=== PATIENT | female | born 1995 | race Caucasian/White ===

== ENCOUNTER 2024-07-10 12:16 | Emergency (ER) | payer BC, SELFPAY ==
--- NOTE | ~2024-07-10 | CT_ITS ---
CLINICAL HISTORY: headache and syncope CT head without contrast Comparison: None Findings: No intra-axial mass, midline shift, hydrocephalus, or acute hemorrhage. No significant atrophy-like change or white matter disease. There is mucosal thickening of the bilateral maxillary sinus. The orbits are within normal limits. There is no acute fracture. IMPRESSION: No acute intracranial findings Sinusitis of the bilateral maxillary sinus. This document has been electronically signed by: Norm Quiroz MD on 07/10/2024 17:06:06
[2024-07-10 12:25] VITALS: BP 131/77; PULSE 91; RESP 19; TEMP 36.6; O2SAT 98; BMI 35.9
--- NOTE | 2024-07-10 12:25 | ED_ITS ---
HPI - General Adult General Chief complaint: Headache Stated complaint: headache, fainted Time Seen by Provider: 07/10/24 14:51 History of Present Illness HPI narrative: Patient complains of abrupt onset headache which happened while she was sitting at the table talking with her aunt, and then she fainted, she was briefly on the floor and then woke up to full alertness and consciousness and was asymptomatic This headache is similar to many many prior headaches over years which began with a very abrupt onset and last for a short amount of time and leave her dizzy, but the difference today was she actually did faint and had a syncopal episode There was no seizure activity, she returned to full alertness and consciousness very quickly, she did hit her head when she fell, at this moment of time she has no headache no nausea no dizziness no feeling faint, she never had chest pain or shortness of breath, no palpitations no diaphoresis Today's headache followed the same pattern the difference being she fainted as opposed to other headaches which are brief abrupt onset headaches with dizziness She is from [place] and has seen by a primary doctor in [place] but never had any significant testing or referral to a neurologist Related Data Allergies Allergy/AdvReac Type Severity Reaction Status Date / Time No Known Allergies Allergy Verified 07/10/24 12:29 [facility], [facility] Past Medical History [facility] Narrative: Chronic headaches for many years Source: nursing notes reviewed Social History Social History Advance Directives: No Advance Directives Information Provided: No Do you have a plan to hurt others: No Plan Physical Exam ED Vital Signs: Vital Signs - 24 hr 07/10/24 12:25 07/10/24 16:13 07/10/24 18:40 Temperature 98 F 97.7 F 97.7 F Pulse Rate 91 87 87 Respiratory Rate 19 16 16 Blood Pressure 131/77 127/76 127/76 Pulse Oximetry 98 100 100 Oxygen Delivery Method Room Air Room Air Room Air BMI result Body Mass Index 35.9 General appearance comfortable calm cooperative no acute distress A&O x3 The eyes pupils equal round reactive to light extraocular motions are intact The head is normocephalic atraumatic, no hernandez sign no raccoon eyes The neck is supple and nontender Chest is clear to auscultation bilateral Heart no murmur Abdomen soft nontender Extremities full range of motion x4 Neuro gait balance are normal, interaction comprehension and expression are normal, cranial nerves 2-12 intact as tested, motor is 5/5 x4, sensation intact and symmetrical in distal extremities, cerebellar exam [id number] is normal Course Course Course Narrative: 29 yo female with no PMH of headaches but not migraines - started with a headache one week ago pain was stronger. Not on blood thinners. Fell today about 2 hours ago because pain was severe she touched her scalp then became weak fell to the ground hitting head. reported LOC with weakness. No n/v, fevers. At this time she is not toxic, no focal deficits, GSC 15, overall well appearing and steady gait. this is a RAPID medical screening exam the rest of the history and physical exam is to be done by the main provider. Patient with long history of abrupt onset headaches that are brief and are followed by a brief period of dizziness that have been going on for years, they happen frequently Today she had a similar episode but believes she fainted and hit her head and was out on the floor for about a minute and then return to full consciousness and was asymptomatic EKG was sinus rhythm with short ND, ND was 100, no acute ST changes no acute ischemic changes She had no worrisome cardiac symptoms she had no chest pain no shortness of breath no palpitations preceding the episode, she did have a headache Head CT was negative for any acute intracranial pathology, no bleed no mass seen Hematology CBC was normal, routine chemistry was negative and beta hCG was negative not Case was discussed with Dr. Cardenas, head CT was done about 5 hours after the patient's headache onset this morning and was negative and Dr. Bragg advised within 6 hour window this is not an acute bleed, headache did follow the pattern of many prior headaches Patient is discharged diagnosis headache, feeling in her normal state of health and it was not believed that the headache today was a bleed or any other emergent life-threatening condition Medical Decision Making Lab Data MDM Lab Attestation statement: I reviewed the patient's lab results. 07/10/24 12:59 07/10/24 12:59 Labs: Lab Results 07/10/24 Range/Units 12:59 WBC 8.7 (4.8-10.8) X10*3/uL RBC 4.79 (4.20-5.50) X10*6/uL Hgb 14.2 (12.0-16.0) g/dl Hct 42.4 (37.0-47.0) % MCV 88.5 (80.0-98.0) fL MCH 29.6 (27.0-33.0) pg MCHC 33.5 (31.0-35.0) g/dl RDW 12.7 (11.0-16.0) % Plt Count 367 (160-400) X10*3/uL MPV 10.7 (9.4-12.3) fL Immature Gran % (Auto) 0.3 (0.0-0.4) % Neut % (Auto) 63.6 (45-73) % Lymph % (Auto) 28.3 (20-40) % Meigs % (Auto) 6.5 (2-11) % Eos % (Auto) 1.0 (0-4) % Baso % (Auto) 0.3 (0-2) % Lymph # (Auto) 2.5 (1.2-4.9) X10*3/uL Meigs # (Auto) 0.6 (0.1-1.2) X10*3/uL Eos # (Auto) 0.1 (0.0-0.4) X10*3/uL Baso # (Auto) 0.0 (0.0-0.2) X10*3/uL Abs Immat Gran (auto) 0.03 (0.00-0.03) X10*3/uL Absolute Neuts (auto) 5.5 (2.0-8.3) x10*3/uL Absolute Nucleated RBC 0.000 (0.0-0.012) X10*3/uL Nucleated RBC % (auto) 0.0 (0.0-0.2) /100WBC Sodium 139 (135-145) mmol/L Potassium 4.0 (3.3-5.1) mmol/L Chloride 105 (96-108) mmol/L Carbon Dioxide 27 (22-29) mmol/L Anion Gap 11 L (12-20) BUN 11 (9-16) mg/dL Creatinine 0.71 (0.5-1.4) mg/dL Estim Creat Clear Calc 111.9 Estimated GFR > 60 Random Glucose 82 (60-115) mg/dL Calcium 8.9 (8.4-10.2) mg/dL Magnesium 1.9 (1.6-2.6) mg/dL Total Bilirubin 0.6 (0.0-1.0) mg/dL Direct Bilirubin 0.1 (0.0-0.5) mg/dL AST 28 (5-31) U/L ALT 27 (0-31) U/L Alkaline Phosphatase 66 (39-117) U/L Total Protein 7.7 (6.5-8.0) g/dL Albumin 4.1 (3.5-5.0) g/dL Beta HCG, Quant < 2 mIU/mL Discharge Plan Discharge Clinical Impression: Headache Patient Disposition: Home, Self-Care Additional Instructions: We believe the headache today with a fainting episode was a variation of the chronic headache you have had for years We do not believe there is anything dangerous or life-threatening and you will be discharged to follow up with primary doctor Your head CT was normal, lab sent today did not have any acute abnormalities, you are not Return to the ER any time any worse condition or any concerns Stand Alone Forms: Work/School Release Interventions: ED Discharge Assessment Last Done: 07/10/24 18:40 Discharge Date/Time: 07/10/24 18:40 Print Language: Albanian
--- NOTE | 2024-07-10 12:29 | ECG_ITS ---
Test Reason : HEADACHE Blood Pressure : / mmHG Vent. Rate : 088 BPM Atrial Rate : 088 BPM P-R Int : 100 ms QRS Dur : 074 ms QT Int : 356 ms P-R-T Axes : 000 139 -17 degrees QTc Int : 430 ms Sinus rhythm with short WI Right axis deviation Nonspecific T wave abnormality Abnormal ECG No previous ECGs available Referred By: Arlene Rivas Electronically Signed By:REGLA BHATTI MD
[2024-07-10 13:04] LABS: MANUAL DIFF FLAG NO
[2024-07-10 13:05] LABS: Basophils Percent Auto 0.3 % (0-2); Eosinophils Absolute Auto 0.1 X10*3/uL (0.0-0.4); Hematocrit 42.4 % (37.0-47.0); Hemoglobin 14.2 g/dl (12.0-16.0); Imm Gran Abs Auto 0.03 X10*3/uL (0.00-0.03); Imm Gran Pct Auto 0.3 % (0.0-0.4); Lymphocytes Absolute Auto 2.5 X10*3/uL (1.2-4.9); Lymphocytes Percent Auto 28.3 % (20-40); Mean Corpuscular HGB Conc 33.5 g/dl (31.0-35.0); Mean Corpuscular Hemoglobin 29.6 pg (27.0-33.0); Mean Corpuscular Volume 88.5 fL (80.0-98.0); Mean Platelet Volume 10.7 fL (9.4-12.3); Monocytes Absolute Auto 0.6 X10*3/uL (0.1-1.2); Monocytes Percent Auto 6.5 % (2-11); Neutrophils Absolute Auto 5.5 x10*3/uL (2.0-8.3); Neutrophils Percent Auto 63.6 % (45-73); Platelet Count 367 X10*3/uL (160-400); Red Blood Count 4.79 X10*6/uL (4.20-5.50); Red Cell Distribution Width 12.7 % (11.0-16.0); White Blood Count 8.7 X10*3/uL (4.8-10.8)
[2024-07-10 13:25] LABS: Alanine Aminotransferase 27 U/L (0-31); Albumin Level 4.1 g/dL (3.5-5.0); Alkaline Phosphatase 66 U/L (39-117); Anion Gap 11 (12-20); Aspartate Amino Transferase 28 U/L (5-31); Bilirubin Direct 0.1 mg/dL (0.0-0.5); Bilirubin Total 0.6 mg/dL (0.0-1.0); Blood Urea Nitrogen 11 mg/dL (9-16); Calcium 8.9 mg/dL (8.4-10.2); Carbon Dioxide 27 mmol/L (22-29); Chloride 105 mmol/L (96-108); Creatinine Clr Calc Pharmacy 111.9; Estimated Glomerular Filt Rate > 60; Glucose Random 82 mg/dL (60-115); HCG Quantitative < 2 mIU/mL; Magnesium 1.9 mg/dL (1.6-2.6); Sodium 139 mmol/L (135-145); Total Protein 7.7 g/dL (6.5-8.0)
[2024-07-10 16:13] VITALS: BP 127/76; PULSE 87; RESP 16; TEMP 36.5; O2SAT 100
[2024-07-10 18:40] VITALS: BP 127/76; PULSE 87; RESP 16; TEMP 36.5; O2SAT 100
== END 2024-07-10 18:40 | disposition home or self-care (01) ==
PROVIDERS: Emergency Medicine; Emergency Provider Emergency Medicine
DX: R55 Syncope and collapse (principal); R51.9 Headache, unspecified; R94.31 Abnormal electrocardiogram [ECG] [EKG]; R10.2 Pelvic and perineal pain; Z79.899 Other long term (current) drug therapy
CPT/HCPCS: 36415; 70450; 80048; 80076; 83735; 84702; 85025; 93005; 99284

== ENCOUNTER → 2024-07-10 12:29 | Outpatient (BNV) | payer BC, SELFPAY | PROVIDERS: Emergency Provider Emergency Medicine; Visit Provider Nuclear Medicine | DX: R51.9 Headache, unspecified (principal); R55 Syncope and collapse | CPT/HCPCS: 70450 ==

== ENCOUNTER → 2024-07-10 12:29 | Outpatient (BNV) | payer BC, SELFPAY | PROVIDERS: Emergency Provider Emergency Medicine; Visit Provider Internal Medicine Cardiovascular Disease | DX: R51.9 Headache, unspecified (principal) | CPT/HCPCS: 93010 ==